=== PATIENT | female | born 1960 | race Caucasian/White ===

== ENCOUNTER 2021-01-18 07:42 | Emergency (ER) | payer BC, OTHER ==
[2021-01-18] MEDS ORDERED: DUONEB 0.5-3 MG/3 ml Neb IH ONE ×2 (07:57→08:29)
[2021-01-18] MEDS ORDERED: solu-MEDROL 125 MG, Sterile H2O 10 ml 2 ML IV ONE ×2 (07:57)
--- NOTE | 2021-01-18 08:06 | ERPHSYRPT ---
- History of Present Illness Time Seen by Provider: 01/18/21 07:50 Source: patient Exam Limitations: no limitations Patient Subjective Stated Complaint: Pt states she has had increasing shortness of breath x2 weeks. States she used rescue inhaler x2 last night. States she has pressure behind eyes. Concerned because she had MRI a few months ago and had fluid. Was placed on prednisone and then did not have follow up. Denies fever. States she felt like she was drowning last night. Triage Nursing Assessment: Pt ambulates to room without difficulty while talking. Lung sounds clear and equal anterior/posterior. slightly tachypneic but continues to talk in full sentences. Skin pink, warm, dry. Radial pulses present and strong. Physician History: Patient is a 60-year-old female with history of asthma smoker and unspecified "fluid in lungs" presents to our ED with a 2-week history of progressive shortness of breath. Patient self treated last night with a rescue inhaler x2. There was very little improvement. No associated fever. No active chest pain. No nausea or vomiting. No diarrhea. Patient is unsure whether or not she has a history of COPD. Patient has a h/o DVT while on Chantix. Currently no on Chantix. Symptoms are progressive. Symptoms are mild to moderate in intensity. Exertion worsens symptomology. Rest improves symptoms. Patient voices no other complaints or concerns this time. Allergies/Adverse Reactions: gabapentin Allergy (Verified 01/18/21 07:59) varenicline [From Chantix] Allergy (Verified 01/18/21 08:00) albuterol Adverse Reaction (Verified 01/18/21 08:47) shakiness Home Medications: Estrogens, Conjugated [Premarin] 0.3 mg PO DAILY 01/18/21 [History] Hydrocodone/Acetaminophen [Hydrocodone-Acetamin 5-325 mg] 1 each PO PRN 01/18/21 [History] Levalbuterol Tartrate [Levalbuterol Tartrate Hfa] 15 gm IH PRN 01/18/21 [History] Metoprolol Succinate 25 mg Xl* [Toprol-Xl 25MG Tablets] 25 mg PO DAILY [History] Rosuvastatin Calcium [Crestor] 10 mg PO DAILY 01/18/21 [History] Travel Risk - International Travel Have you traveled outside of the country in past 3 weeks: No - Coronavirus Screening Are you exhibiting any of the following symptoms?: Yes Symptoms: Shortness of Breath Close contact with a COVID-19 positive Pt in past 14-21 Days: No - Vaccine Status Have you recieved a Covid-19 vaccination: Yes 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 - Vaccination Dates Date of 2cond Vaccination (if applicable): 10/2020 - Review of Systems Constitutional: No Symptoms, No Fever, No Chills Eyes: No Symptoms Ears, Nose, & Throat: No Symptoms Respiratory: No Symptoms, No Cough, No Dyspnea Cardiac: No Symptoms, No Chest Pain, No Edema, No Syncope Abdominal/Gastrointestinal: No Symptoms, No Abdominal Pain, No Nausea, No Vomiting, No Diarrhea Genitourinary Symptoms: No Symptoms, No Dysuria Musculoskeletal: No Symptoms, No Back Pain, No Neck Pain Skin: No Symptoms, No Rash Neurological: No Symptoms, No Dizziness, No Focal Weakness, No Sensory Changes Psychological: No Symptoms Endocrine: No Symptoms Hematologic/Lymphatic: No Symptoms Immunological/Allergic: No Symptoms All Other Systems: Reviewed and Negative - Past Medical History Pertinent Past Medical History: Yes Neurological History: Migraines Cardiac History: Hypertension Respiratory History: Asthma Musculoskeletal History: Other Other Medical History: Hip/Back pain - Past Surgical History Past Surgical History: Yes Musculoskeletal: Orthopedic Surgery Other Surgical History: Knee, shoulder, facial reconstruction - Social History Smoking Status: Current every day smoker Drug Use: none Patient Lives Alone: No - Female History Hx Last Menstrual Period: post hyster - Nursing Vital Signs Nursing Vital Signs: Initial Vital Signs Temperature 98.1 F 01/18/21 07:45 Pulse Rate 72 01/18/21 07:45 Respiratory Rate 22 01/18/21 07:45 Blood Pressure 166/87 01/18/21 07:45 O2 Sat by Pulse Oximetry 98 01/18/21 07:45 Pain Scale Pain Intensity 5 - Physical Exam General Appearance: mild distress, other (And is mildly tachypneic. However she is able to speak in complete sentences without difficulty.) Eye Exam: PERRL/EOMI, eyes nml inspection, No scleral icterus Ears, Nose, Throat Exam: hearing grossly normal, normal ENT inspection, normal pharynx Neck Exam: normal inspection, supple Respiratory Exam: diminished breath sounds, rhonchi, wheezing, other, No stridor Cardiovascular/Chest Exam: normal heart sounds, regular rate/rhythm Abdominal/Gastrointestinal Exam: soft, No tenderness, No distention, No mass Extremity Exam: non-tender, normal range of motion, normal inspection, no calf tenderness, no pedal edema Neurologic Exam: alert, oriented x 3, cooperative, 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 Bony thorax intact with mild degenerative changes and minimal levoscoliosis. 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 Care 01/18/21 07:56 Active EKG-ER Only STAT Care 01/18/21 07:55 Active IV Insertion STAT Care 01/18/21 07:55 Active Pulse Oximetry (ED) STAT Care 01/18/21 07:55 Active CHEST 1 VIEW (PORTABLE) Stat Exams 01/18/21 08:51 Completed BLOOD CULTURE Stat Lab 01/18/21 08:16 Received CBC W DIFF Stat Lab 01/18/21 08:26 Completed CMP Stat Lab 01/18/21 08:26 Completed D-DIMER QUANTITATIVE Stat Lab 01/18/21 08:26 Completed NT PRO BNP Stat Lab 01/18/21 08:26 Completed TROPONIN Q3H Lab 01/18/21 08:26 Completed TROPONIN Q3H Lab 01/18/21 11:05 Completed TROPONIN Q3H Lab 01/18/21 14:00 Ordered TROPONIN Q3H Lab 01/18/21 17:00 Ordered TROPONIN Q3H Lab 01/18/21 20:00 Ordered Respiratory Therapy Assessment ONCE RT 01/18/21 08:39 Completed Medication Summary Discontinued Medications Generic Name Dose Route Start Last Admin Trade Name Freq PRN Reason Stop Dose Admin Albuterol/Ipratropium 3 ml 01/18/21 07:57 01/18/21 08:34 Duoneb 0.5-3 Mg/3 Ml Neb IH 01/18/21 07:58 3 ml STAT ONE Administration Albuterol/Ipratropium Confirm 01/18/21 08:29 Duoneb 0.5-3 Mg/3 Ml Neb Administered 01/18/21 08:30 Dose 3 ml IH .STK-MED ONE Methylprednisolone Sodium 0 mg 01/18/21 07:57 01/18/21 08:31 Succinate 125 mg/ Sterile IV 01/18/21 07:58 125 mg Water 2 ml STAT ONE Administration Methylprednisolone Sodium Succinate Confirm 01/18/21 08:26 Solu-Medrol Administered 01/18/21 08:27 Dose 125 mg .ROUTE .STK-MED ONE Methylprednisolone Sodium Succinate Confirm 01/18/21 08:28 Solu-Medrol Administered 01/18/21 08:29 Dose 125 mg .ROUTE .STK-MED ONE Sterile Water Confirm 01/18/21 08:28 Sterile H2o 10 Ml Administered 01/18/21 08:29 Dose 10 ml IJ .STK-MED ONE Lab/Rad Data: Laboratory Result Diagrams 01/18/21 08:26 01/18/21 08:26 Laboratory Results 01/18/21 01/18/21 01/18/21 Range/Units 11:05 08:26 08:26 WBC (4.0-10.5) K/mm3 RBC (4.1-5.4) M/mm3 Hgb (12.0-16.0) gm/dl Hct (35-47) % MCV (78-100) fl MCH (26-32) pg MCHC (32-36) g/dl RDW (11.5-14.0) % Plt Count (150-450) K/mm3 MPV (7.5-11.0) fl Gran % (36.0-66.0) % Eos # (Auto) (0-0.5) Absolute Lymphs (auto) (1.0-4.6) Absolute Monos (auto) (0.0-1.3) Lymphocytes % (24.0-44.0) % Monocytes % (0.0-12.0) % Eosinophils % (0.00-5.0) % Basophils % (0.0-0.4) % Absolute Granulocytes (1.4-6.9) Basophils # (0-0.4) D-Dimer 441 (215-500) ng/mL Sodium (137-145) mmol/L Potassium (3.5-5.1) mmol/L Chloride (98-107) mmol/L Carbon Dioxide (22-30) mmol/L Anion Gap (5-15) MEQ/L BUN (7-17) mg/dL Creatinine (0.52-1.04) mg/dL Estimated GFR ML/MIN Glucose (74-106) mg/dL Calcium (8.4-10.2) mg/dL Total Bilirubin (0.2-1.3) mg/dL AST (14-36) U/L ALT (0-35) U/L Alkaline Phosphatase (38-126) U/L Troponin I < 0.012 < 0.012 (0.000-0.034) ng/mL NT-Pro-B Natriuret Pep (0-900) pg/mL Serum Total Protein (6.3-8.2) g/dL Albumin (3.5-5.0) g/dL 01/18/21 01/18/21 Range/Units 08:26 08:26 WBC 7.2 (4.0-10.5) K/mm3 RBC 4.21 (4.1-5.4) M/mm3 Hgb 13.2 (12.0-16.0) gm/dl Hct 40.6 (35-47) % MCV 96.4 (78-100) fl MCH 31.4 (26-32) pg MCHC 32.5 (32-36) g/dl RDW 13.0 (11.5-14.0) % Plt Count 291 (150-450) K/mm3 MPV 9.8 (7.5-11.0) fl Gran % 54.9 (36.0-66.0) % Eos # (Auto) 0.20 (0-0.5) Absolute Lymphs (auto) 2.58 (1.0-4.6) Absolute Monos (auto) 0.44 (0.0-1.3) Lymphocytes % 35.8 (24.0-44.0) % Monocytes % 6.1 (0.0-12.0) % Eosinophils % 2.8 (0.00-5.0) % Basophils % 0.4 (0.0-0.4) % Absolute Granulocytes 3.96 (1.4-6.9) Basophils # 0.03 (0-0.4) D-Dimer (215-500) ng/mL Sodium 141 (137-145) mmol/L Potassium 3.9 (3.5-5.1) mmol/L Chloride 107 (98-107) mmol/L Carbon Dioxide 22 (22-30) mmol/L Anion Gap 14.7 (5-15) MEQ/L BUN 10 (7-17) mg/dL Creatinine 0.54 (0.52-1.04) mg/dL Estimated GFR > 60.0 ML/MIN Glucose 94 (74-106) mg/dL Calcium 9.7 (8.4-10.2) mg/dL Total Bilirubin 0.10 L (0.2-1.3) mg/dL AST 28 (14-36) U/L ALT 16 (0-35) U/L Alkaline Phosphatase 72 (38-126) U/L Troponin I (0.000-0.034) ng/mL NT-Pro-B Natriuret Pep 47.7 (0-900) pg/mL Serum Total Protein 7.3 (6.3-8.2) g/dL Albumin 4.3 (3.5-5.0) g/dL - Progress Progress: improved Air Movement: good Progress Note: Received a DuoNeb treatment. Patient became "shaky". Patient states albuterol tends cause her to feel this way. She uses levalbuterol instead. No chest pain. Lungs are now clear. Wheezing resolved. Coarse breath sounds resolved. No tachycardia on the heart monitor. Heart rate 92. D-dimer negative. Chest x-ray ordered. Labs are essentially within normal limits. Troponin pending. We will ambulate patient in our ED and assess O2 level. 01/18/21 08:53 01/18/21 12:19 Patient reassessed. She feels well. Shaking has resolved. Vital stable. No chest pain or shortness of breath. Troponin negative x2. EKG abnormal. Repeat EKG showed T wave abnormalities as compared to the initial EKG on presentation. In light of patient's cardiac risk factors age, smoking history, high cholesterol we advised admission for rule out but decided not to stay. Patient is of sound mind. Patient is appropriate to make informed and independent medical decisions. Patient understands that leaving AGAINST MEDICAL ADVICE can result in delayed diagnosis, increased risk of morbidity, mortality, short and long-term disability including . In spite of these risks, patient has decided to leave AGAINST MEDICAL ADVICE. Patient understands that she may return to our ED at any point if she reconsiders. Patient agrees to follow-up with her primary care doctor within 48 hours for reevaluation. Patient voices no other complaints or concerns at this time. We will release patient AGAINST MEDICAL ADVICE per their request. Per patients request, we scheduled an outpatient appointment with Dr. Nicholson. An outpatient cardiac stress test may be ordered at that time. The appointment is scheduled for January 21 at [address] Nicholson. Patient is aware of this appointment and states she will attend the appointment as scheduled. We will forward prescription of prednisone to patient's pharmacy. 01/18/21 12:22 Blood Culture(s) Obtained: Yes Antibiotics given: No Counseled pt/family regarding: lab results, diagnosis, need for follow-up - Departure Departure Disposition: AMA Clinical Impression: SOB (shortness of breath), LBBB (left bundle branch block), Levoscoliosis, Abnormal EKG, COPD (chronic obstructive pulmonary disease) Condition: Stable Critical Care Time: No Referrals: OTONIEL NICHOLSON MD [ACTIVE STAFF] - Instructions: Chronic Obstructive Pulmonary Disease Prescriptions: Prednisone 10 mg [Deltasone 10 mg] 40 mg PO DAILY 3 Days #12 tablet
[2021-01-18 08:22] LABS: Absolute Neutrophil Ct (ANC) 3.96 (1.4-6.9); BASOPHIL % 0.4 % (0.0-0.4); Basophil (Absolute #) 0.03 (0-0.4); Eosinophil % 2.8 % (0.00-5.0); Hematocrit 40.6 % (35-47); Hemoglobin 13.2 gm/dl (12.0-16.0); Lymphocyte (Absolute #) 2.58 (1.0-4.6); Lymphocytes % 35.8 % (24.0-44.0); Mean Cell Volume 96.4 fl (78-100); Mean Corpuscular Hemoglobin 31.4 pg (26-32); Mean Corpuscular Hgb Concent. 32.5 g/dl (32-36); Mean Platelet Volume 9.8 fl (7.5-11.0); Monocyte (Absolute #) 0.44 (0.0-1.3); Monocytes % 6.1 % (0.0-12.0); Neutrophil % 54.9 % (36.0-66.0); Platelet Count 291 K/mm3 (150-450); Red Blood Count 4.21 M/mm3 (4.1-5.4); White Blood Count 7.2 K/mm3 (4.0-10.5)
[2021-01-18] MEDS ORDERED: solu-MEDROL ONE ×2 (08:26→08:28)
[2021-01-18] MEDS ORDERED: Sterile H2O 10 ml IJ ONE (08:28)
[2021-01-18 08:46] LABS: ALBUMIN 4.3 g/dL (3.5-5.0); ALKALINE PHOSPHATASE 72 U/L (38-126); ANION GAP 14.7 MEQ/L (5-15); BLOOD UREA NITROGEN 10 mg/dL (7-17); CHLORIDE 107 mmol/L (98-107); Calcium 9.7 mg/dL (8.4-10.2); Carbon Dioxide 22 mmol/L (22-30); Creatinine 1 0.54 mg/dL (0.52-1.04); EST GLOMERULAR FILTRATION RATE > 60.0 ML/MIN; Glucose 94 mg/dL (74-106); NT PRO BNP 47.7 pg/mL (0-900); Potassium 3.9 mmol/L (3.5-5.1); SGOT/AST 28 U/L (14-36); SGPT/ALT 16 U/L (0-35); SODIUM 141 mmol/L (137-145); Total Protein 7.3 g/dL (6.3-8.2)
--- NOTE | 2021-01-18 09:14 | XRAY ---
Indication: Short of breath and fatigue. Asthma. Comparison: None Portable chest demonstrates normal heart and lungs with incidental right base nipple shadow. Bony thorax intact with mild degenerative changes and minimal levoscoliosis. Impression: Nonacute chest with chronic features.
[2021-01-18 11:30] VITALS: PULSE 86
[2021-01-18 12:21] VITALS: BP 149/79
[2021-01-18 12:22] VITALS: O2SAT 99
== END 2021-01-18 12:29 | disposition home or self-care (01) ==
LOC: ED 07:42
DX: R06.02 Shortness of breath (principal); I44.7 Left bundle-branch block, unspecified; M41.9 Scoliosis, unspecified; R94.31 Abnormal electrocardiogram [ECG] [EKG]; J44.9 Chronic obstructive pulmonary disease, unspecified
CPT/HCPCS: 36000; 36415; 71045; 80053; 83880; 84484; 85025; 85379; 87040; 93005; 93041; 94640; 94760; 96374; 99284; J2930; A9270-GY

== ENCOUNTER 2021-04-05 07:43 | Emergency (ER) | payer OTHER ==
[2021-04-05] MEDS ORDERED: TORAdol 30 mg Injection IV ONE (08:14)
[2021-04-05] MEDS ORDERED: TORAdol 30 mg Injection ONE (08:25)
--- NOTE | 2021-04-05 08:30 | ERPHSYRPT ---
- History of Present Illness Source: patient Exam Limitations: no limitations Patient Subjective Stated Complaint: Back pain Triage Nursing Assessment: Patient ambulated back to ED and transferred self to bed. Patient A+O X3. Patient's skin pink, warm and dry. Patient complains of mid back/neckpain that radiates down right shoulder arm 04/11. Patient denies injury, but states he started hurting yesterday and has gotten worse. Physician History: 61 yo wf w R posterior, superior thoracic pain x 11 hr. Pain is a 10 on scale and seems to be worse w movement. It does radiate to her R shoulder. She denies chest pain/dyspnea/nausea/vomiting/diaphoresis. Pt has a h/o CAD/HTN/hyperlipidemia/1ppd smoking. She has never had the pain before. Timing/Duration: other (12 hrs) Method of Injury: other (No injury) Back Pain Location: paraspinous muscles (R thoracic extensor musculature) Severity of Pain-Max: severe Severity of Pain-Current: severe Modifying Factors: Improves With: movement Associated Symptoms: No fever, No chills, No sweating, No urinary incontinence, No loss of bowel control, No constipation, No nausea, No vomiting, No problems urinating, No light-headedness, No dizziness, No numbness in legs/feet, No weakness, No sensory/motor loss, No tingling in legs/feet, No lower back pain, No muscle spasms Previous symptoms: no prior history Allergies/Adverse Reactions: gabapentin Allergy (Verified 04/05/21 07:49) varenicline [From Chantix] Allergy (Verified 04/05/21 07:49) albuterol Adverse Reaction (Verified 04/05/21 07:49) shakiness Home Medications: Estrogens, Conjugated [Premarin] 0.3 mg PO DAILY 01/18/21 [History] Hydrocodone/Acetaminophen [Hydrocodone-Acetamin 5-325 mg] 1 each PO PRN 01/18/21 [History] Levalbuterol Tartrate [Levalbuterol Tartrate Hfa] 15 gm IH PRN 01/18/21 [History] Metoprolol Succinate 25 mg Xl* [Toprol-Xl 25MG Tablets] 25 mg PO DAILY 01/18/21 [History] Rosuvastatin Calcium [Crestor] 10 mg PO DAILY 01/18/21 [History] Hx Influenza Vaccination/Date Given: No Hx Pneumococcal Vaccination/Date Given: No Immunizations Up to Date: Yes Travel Risk - International Travel Have you traveled outside of the country in past 3 weeks: No - Coronavirus Screening Are you exhibiting any of the following symptoms?: No Close contact with a COVID-19 positive Pt in past 14-21 Days: No - Vaccine Status Have you recieved a Covid-19 vaccination: Yes 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: [employer] - Vaccination Dates Date of 2cond Vaccination (if applicable): 10/2020 - Review of Systems Constitutional: No Symptoms Eyes: No Symptoms Ears, Nose, & Throat: No Symptoms Respiratory: No Symptoms Cardiac: No Symptoms Abdominal/Gastrointestinal: No Symptoms Genitourinary Symptoms: No Symptoms Musculoskeletal: No Symptoms, Back Pain Skin: No Symptoms Neurological: No Symptoms Psychological: No Symptoms Endocrine: No Symptoms Hematologic/Lymphatic: No Symptoms Immunological/Allergic: No Symptoms - Past Medical History Pertinent Past Medical History: Yes Neurological History: Migraines Cardiac History: Hypertension Respiratory History: Asthma Musculoskeletal History: Other Other Medical History: Hip/Back pain - Past Surgical History Past Surgical History: Yes Musculoskeletal: Orthopedic Surgery Other Surgical History: Knee, shoulder, facial reconstruction - Social History Smoking Status: Current every day smoker Exposure to second hand smoke: No Drug Use: none Patient Lives Alone: No Significant Family History: no pertinent family hx - Female History Hx Now: No - Nursing Vital Signs Nursing Vital Signs: Initial Vital Signs Temperature 98.0 F 04/05/21 07:51 Pulse Rate 76 04/05/21 07:51 Respiratory Rate 18 04/05/21 07:51 Blood Pressure 160/95 04/05/21 07:51 O2 Sat by Pulse Oximetry 95 04/05/21 07:51 Pain Scale Pain Intensity 6 Hypertensive - Physical Exam General Appearance: no apparent distress (In pain) Eye Exam: PERRL/EOMI, eyes nml inspection Ears, Nose, Throat Exam: normal ENT inspection, TMs normal, pharynx normal, moist mucous membranes Neck Exam: normal inspection, non-tender, supple Respiratory Exam: normal breath sounds, lungs clear, airway intact, No chest tenderness, No respiratory distress Cardiovascular Exam: regular rate/rhythm, normal heart sounds, normal peripheral pulses, No murmur Gastrointestinal Exam: soft, normal bowel sounds, No tenderness Back Exam: other (TTP R superior paraspinous musculature) Extremity Exam: normal inspection, normal range of motion Peripheral Pulses: carotid (R): 2+, carotid (L): 2+ Neurologic Exam: alert, oriented x 3, 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, 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, nor mal mood/affect, nml cerebellar function, nml station & gait, sensation nml, No motor deficits, No sensory deficit Skin Exam: normal color Lymphatic Exam: No adenopathy SpO2 Interpretation: normal SpO2: 95 O2 Delivery: Room Air - Course Nursing assessment & vital signs reviewed: Yes EKG Interpreted by Me: RATE (NSR/Old anterior MT/Prolonged QT-QTc/IVCD) - CT Exams Chest CT Interpretation: Discussed w/radiologist (CT chest w contrast-wnl per Rad) Ordered Tests: Active Orders 24 hr Category Date Time Status EKG-ER Only STAT Care 04/05/21 08:13 Completed IV Insertion STAT Care 04/05/21 08:13 Completed CHEST WITH CONTRAST [CT] Stat Exams 04/05/21 09:16 Completed CBC W DIFF Stat Lab 04/05/21 08:25 Completed CMP Stat Lab 04/05/21 08:25 Completed D-DIMER QUANTITATIVE Stat Lab 04/05/21 08:25 Completed PROTIME WITH INR Stat Lab 04/05/21 08:25 Completed PTT Stat Lab 04/05/21 08:25 Completed TROPONIN Q3H Lab 04/05/21 08:25 Completed Medication Summary Discontinued Medications Generic Name Dose Route Start Last Admin Trade Name Freq PRN Reason Stop Dose Admin Ketorolac Tromethamine 15 mg 04/05/21 08:14 04/05/21 08:27 Toradol 30 Mg Injection IV 04/05/21 08:15 15 mg STAT ONE Administration Ketorolac Tromethamine Confirm 04/05/21 08:25 Toradol 30 Mg Injection Administered 04/05/21 08:26 Dose 30 mg .ROUTE .STK-MED ONE Orphenadrine Citrate 60 mg 04/05/21 09:20 04/05/21 09:39 Norflex 60 Mg/2 Ml IM 04/05/21 09:21 60 mg STAT ONE Administration Orphenadrine Citrate Confirm 04/05/21 09:38 Norflex 60 Mg/2 Ml Administered 04/05/21 09:39 Dose 60 mg .ROUTE .STK-MED ONE Lab/Rad Data: Laboratory Result Diagrams 04/05/21 08:25 04/05/21 08:25 Laboratory Results 04/05/21 04/05/21 04/05/21 Range/Units 08:25 08:25 08:25 WBC (4.0-10.5) K/mm3 RBC (4.1-5.4) M/mm3 Hgb (12.0-16.0) gm/dl Hct (35-47) % MCV (78-100) fl MCH (26-32) pg MCHC (32-36) g/dl RDW (11.5-14.0) % Plt Count (150-450) K/mm3 MPV (7.5-11.0) fl Gran % (36.0-66.0) % Eos # (Auto) (0-0.5) Absolute Lymphs (auto) (1.0-4.6) Absolute Monos (auto) (0.0-1.3) Lymphocytes % (24.0-44.0) % Monocytes % (0.0-12.0) % Eosinophils % (0.00-5.0) % Basophils % (0.0-0.4) % Absolute Granulocytes (1.4-6.9) Basophils # (0-0.4) PT 10.8 (9.4-12.5) SECONDS INR 0.92 (0.8-3.0) APTT 32.2 (25.1-36.5) SECONDS D-Dimer < 215 L (215-500) ng/mL Sodium 140 (137-145) mmol/L Potassium 3.9 (3.5-5.1) mmol/L Chloride 107 (98-107) mmol/L Carbon Dioxide 21 L (22-30) mmol/L Anion Gap 15.1 H (5-15) MEQ/L BUN 10 (7-17) mg/dL Creatinine 0.50 L (0.52-1.04) mg/dL Estimated GFR > 60.0 ML/MIN Glucose 95 (74-106) mg/dL Calcium 9.3 (8.4-10.2) mg/dL Total Bilirubin 0.40 (0.2-1.3) mg/dL AST 24 (14-36) U/L ALT 16 (0-35) U/L Alkaline Phosphatase 63 (38-126) U/L Troponin I < 0.012 (0.000-0.034) ng/mL Serum Total Protein 7.0 (6.3-8.2) g/dL Albumin 4.3 (3.5-5.0) g/dL 04/05/21 Range/Units 08:25 WBC 7.3 (4.0-10.5) K/mm3 RBC 3.96 L (4.1-5.4) M/mm3 Hgb 12.7 (12.0-16.0) gm/dl Hct 37.9 (35-47) % MCV 95.7 (78-100) fl MCH 32.1 H (26-32) pg MCHC 33.5 (32-36) g/dl RDW 12.4 (11.5-14.0) % Plt Count 265 (150-450) K/mm3 MPV 9.9 (7.5-11.0) fl Gran % 51.8 (36.0-66.0) % Eos # (Auto) 0.27 (0-0.5) Absolute Lymphs (auto) 2.64 (1.0-4.6) Absolute Monos (auto) 0.59 (0.0-1.3) Lymphocytes % 36.1 (24.0-44.0) % Monocytes % 8.1 (0.0-12.0) % Eosinophils % 3.7 (0.00-5.0) % Basophils % 0.3 (0.0-0.4) % Absolute Granulocytes 3.80 (1.4-6.9) Basophils # 0.02 (0-0.4) PT (9.4-12.5) SECONDS INR (0.8-3.0) APTT (25.1-36.5) SECONDS D-Dimer (215-500) ng/mL Sodium (137-145) mmol/L Potassium (3.5-5.1) mmol/L Chloride (98-107) mmol/L Carbon Dioxide (22-30) mmol/L Anion Gap (5-15) MEQ/L BUN (7-17) mg/dL Creatinine (0.52-1.04) mg/dL Estimated GFR ML/MIN Glucose (74-106) mg/dL Calcium (8.4-10.2) mg/dL Total Bilirubin (0.2-1.3) mg/dL AST (14-36) U/L ALT (0-35) U/L Alkaline Phosphatase (38-126) U/L Troponin I (0.000-0.034) ng/mL Serum Total Protein (6.3-8.2) g/dL Albumin (3.5-5.0) g/dL - Progress Progress: improved Progress Note: 04/05/21 10:15 15mg IV Toradol w mild relief 60mg IM Norflex w progression in relief Counseled pt/family regarding: lab results, diagnosis, need for follow-up, rad results - Departure Departure Disposition: Home Clinical Impression: Muscle strain Condition: Stable Critical Care Time: No Referrals: OTONIEL NICHOLSON MD [Primary Care Provider] - Instructions: Back Muscle Strain (DC) Additional Instructions: Rest/Heat/Massage Toradol-Norflex as needed for pain Take your Hydrocodone as directed Return to ER for increasing pain or temperature greater than 100.5 Prescriptions: Orphenadrine Citrate 100 mg [Norflex 100 MG Tablet] 100 mg PO BID PRN #12 tab PRN Reason: Pain Ketorolac Tromethamine [Toradol] 10 mg PO TID PRN #10 tablet PRN Reason: Pain
[2021-04-05 08:37] LABS: BASOPHIL % 0.3 % (0.0-0.4); Basophil (Absolute #) 0.02 (0-0.4); Eosinophil % 3.7 % (0.00-5.0); Eosinophil (Absolute #) 0.27 (0-0.5); Hematocrit 37.9 % (35-47); Hemoglobin 12.7 gm/dl (12.0-16.0); Lymphocyte (Absolute #) 2.64 (1.0-4.6); Lymphocytes % 36.1 % (24.0-44.0); Mean Cell Volume 95.7 fl (78-100); Mean Corpuscular Hemoglobin 32.1 pg (26-32); Mean Corpuscular Hgb Concent. 33.5 g/dl (32-36); Mean Platelet Volume 9.9 fl (7.5-11.0); Monocyte (Absolute #) 0.59 (0.0-1.3); Monocytes % 8.1 % (0.0-12.0); Neutrophil % 51.8 % (36.0-66.0); Platelet Count 265 K/mm3 (150-450); Red Blood Count 3.96 M/mm3 (4.1-5.4); Red Cell Distribution Width 12.4 % (11.5-14.0); White Blood Count 7.3 K/mm3 (4.0-10.5)
[2021-04-05 08:38] LABS: INR 0.92 (0.8-3.0); PROTIME 10.8 SECONDS (9.4-12.5)
[2021-04-05 08:41] LABS: PTT 32.2 SECONDS (25.1-36.5)
[2021-04-05 08:43] LABS: ALBUMIN 4.3 g/dL (3.5-5.0); ALKALINE PHOSPHATASE 63 U/L (38-126); ANION GAP 15.1 MEQ/L (5-15); BLOOD UREA NITROGEN 10 mg/dL (7-17); CHLORIDE 107 mmol/L (98-107); Calcium 9.3 mg/dL (8.4-10.2); Carbon Dioxide 21 mmol/L (22-30); EST GLOMERULAR FILTRATION RATE > 60.0 ML/MIN; Glucose 95 mg/dL (74-106); Potassium 3.9 mmol/L (3.5-5.1); SGOT/AST 24 U/L (14-36); SGPT/ALT 16 U/L (0-35); SODIUM 140 mmol/L (137-145)
[2021-04-05 08:57] LABS: D-DIMER QUANTITATIVE < 215 ng/mL (215-500)
[2021-04-05] MEDS ORDERED: Norflex 60 MG/2 ML IM ONE (09:20)
[2021-04-05] MEDS ORDERED: Norflex 60 MG/2 ML ONE (09:38)
[2021-04-05 09:50] VITALS: BP 138/75; PULSE 67
--- NOTE | 2021-04-05 09:57 | XRAY ---
Indication: Chronic right shoulder pain/numbness for years. Multiple contiguous images obtained through the chest using 100 cc Isovue 370 contrast. Comparison: None Lungs inflated and clear. Heart not enlarged. Aorta normal in course and caliber. No pathologic mediastinal/hilar lymphadenopathy. Bony thorax intact with minimal/mild degenerative changes throughout the spine. Limited upper abdomen demonstrates cholecystectomy clips. Impression: Normal CT chest with contrast exam.
[2021-04-05 10:19] VITALS: O2SAT 95
== END 2021-04-05 10:24 | disposition home or self-care (01) ==
LOC: ED 07:43
DX: T14.8XXA Other injury of unspecified body region, initial encounter (principal)
CPT/HCPCS: 36000; 36415; 71260; 80053; 84484; 85025; 85379; 85610; 85730; 93005; 96372; 96374; 99284; J1885; J2360